=== PATIENT | female | born 1960 | race Caucasian/White ===

== ENCOUNTER → 2019-07-27 | Outpatient (CLI) | payer BC ==
--- NOTE | 2019-07-27 16:24 | Diagnostic Imaging Report ---
Exam: KUB Clinical history: Kidney stone Findings: There is no evidence of radiopaque stones along the course of bilateral renal collecting systems. Mild retained feces is seen in the colon. The regional osseous structures are unremarkable. Impression: 1. Unremarkable KUB. Signed by: Dr. Cole Llamas MD on 07/27/2019 4:21 PM
== END ==
LOC: RAD 15:39
PROVIDERS: ATTEND Urology
DX: N20.0 Calculus of kidney (principal)
CPT/HCPCS: 74018

== ENCOUNTER → 2020-04-29 | Outpatient (CLI) | payer BC ==
--- NOTE | 2020-04-30 09:05 | Diagnostic Imaging Report ---
Abdomen, one view INDICATION: ^[id number] ^[id number] ^CALCULUS OF KIDNEY Comparison: 07/27/2019. Discussion: Limited due to overlying stool. No definite radiographically apparent renal calculi is identified. Rounded calcific density projecting over the left paraspinal soft tissues images and L3 probably relates to debris within the bowel loops. Multiple pelvic phleboliths are identified. No dilated loops of bowel are identified. No acute osseous abnormality. IMPRESSION: Limited evaluation due to overlying stool. No definite radiographically apparent renal calculus is noted. Probable debris within a bowel loop is identified at the left paraspinal L3 region. Signed by: Adrian Escobar MD on 04/30/2020 9:01 AM
== END ==
LOC: RAD 14:51
PROVIDERS: ATTEND Urology
DX: N20.0 Calculus of kidney (principal)
CPT/HCPCS: 74018